=== PATIENT | female | born 1950 | race Caucasian/White ===

== ENCOUNTER 2017-08-10 13:59 | Emergency (ER) | payer MEDICARE, SELFPAY ==
[2017-08-10 14:47] VITALS: BP 144/90; PULSE 77; RESP 16; TEMP 36.6; O2SAT 97
--- NOTE | 2017-08-10 17:32 | ED.SKABFB ---
HPI - Skin/Abscess/Foreign Bdy <Marichuy Tuttle PA-C - Last Filed: 08/10/17 22:41> General Chief complaint: Skin/Abscess/Foreign Body Stated complaint: CUT FINGER,DEEP WOUND Time Seen by Provider: 08/10/17 17:33 Source: patient Mode of arrival: ambulatory Limitations: no limitations History of Present Illness HPI narrative: This 67-year-old female, right handed, was doing dishes when a glass she was holding broke and cut her right pointer finger. She states that this broken to a large piece, denies any possibility of foreign body. This has been bleeding quite a bit, and she reports pain around the wound itself but denies any other pain, weakness or paresthesia in the fingers. She cannot remember the date of her last tetanus vaccine. She denies any other injury or complaint Related Data Allergies Allergy/AdvReac Type Severity Reaction Status Date / Time poison joanne extract Allergy Mild Rash Verified 08/10/17 18:22 Review of Systems <Marichuy Tuttle PA-C - Last Filed: 08/10/17 22:41> Review of Systems All systems reviewed & are unremarkable except as noted in HPI and below Exam <Marichuy Tuttle PA-C - Last Filed: 08/10/17 22:41> Narrative Exam Narrative: GENERAL APPEARANCE: Patient sitting comfortably, in no distress. LUNGS: Clear to auscultation bilaterally. HEART: Rate and rhythm regular without murmur, normal S1 and S2, no S3 or S4. DERM: R. PF there is a curvilinear 0.8 x 1cm avulsion, bleeding freely from the medial side when pressure is released, appears to be 3-4 mm deep. No visible tendon, muscle, or bone. No visible FB. There is some skin ecchymoses in the center. There are microtears in the skin on the medial, proximal edge. MUSCULOSKELETAL: Full range of motion of right hand fingers, strength intact against resistance NEUROVASCULAR: Right hand fingers are warm and pink with brisk cap refill, sensation grossly intact Initial Vital Signs Initial Vital Signs: Vital Signs Temperature 97.9 F 08/10/17 14:47 Pulse Rate 77 08/10/17 14:47 Respiratory Rate 16 08/10/17 14:47 Blood Pressure 144/90 H 08/10/17 14:47 Pulse Oximetry 97 08/10/17 14:47 <DO Elina Chiang Last Filed: 08/11/17 01:02> Initial Vital Signs Initial Vital Signs: Vital Signs Temperature 97.9 F 08/10/17 14:47 Pulse Rate 77 08/10/17 14:47 Respiratory Rate 16 08/10/17 14:47 Blood Pressure 144/90 H 08/10/17 14:47 Pulse Oximetry 97 08/10/17 14:47 Procedures <TAO Reyna Last Filed: 08/10/17 22:41> Laceration Repair Laceration 1: Site: hand (Right pointer finger) Side (If applicable): right Size (cm): 1.8 Description: flap Depth: simple, single layer Local Anesthetic: lidocaine 2% (digital block) Amount of anesthesia used (mL): 4 Pre-repair: wound explored, irrigated extensively and deep structures intact Skin layer closed with: nylon Size (cm): 5-0 Number of sutures: 7 Technique: simple, interrupted Course <TAO Reyna Last Filed: 08/10/17 22:41> Hospital Course: Laceration was closed. One Steri-Strip was placed in the middle of the medial wound border where I was unable to get a suture to hold due to the tears in the skin edges. A straight finger immobilizer was placed along with bulky dressing Orders Ordered: Discontinued Medications Diphtheria/Tetanus/Acell Pertussis (Adacel) 0.5 ml IM .ONCE ONE Stop: 08/10/17 18:20 Last Admin: 08/10/17 18:23 Dose: 0.5 ml Vital Signs - 8 hr 08/10/17 18:52 Pulse Rate 68 Respiratory Rate 14 Blood Pressure 166/98 H Pulse Oximetry 100 <Michele Singh DO - Last Filed: 08/11/17 01:02> Orders Ordered: Discontinued Medications Diphtheria/Tetanus/Acell Pertussis (Adacel) 0.5 ml IM .ONCE ONE Stop: 08/10/17 18:20 Last Admin: 08/10/17 18:23 Dose: 0.5 ml Vital Signs - 8 hr 08/10/17 18:52 Pulse Rate 68 Respiratory Rate 14 Blood Pressure 166/98 H Pulse Oximetry 100 Discharge Plan Departure Patient Disposition: Home, Self-Care Clinical Impression: Laceration of finger of right hand Discharge Date/Time: 08/10/17 18:53 Interventions: ED Discharge Assessment Last Done: 08/10/17 18:52 Instructions: DI for Laceration Repair Activity Restrictions/Additional Instructions: Wear the splint and bandage for protection. Keep clean and dry. Monitor for any signs of infection and return here right away or to your PCP if any. Follow up with your PCP in 1 week for suture check and removal Referrals: Tirso Small MD [Primary Care Provider] - <Michele Singh DO - Last Filed: 08/11/17 01:02> Cosign ED Attending Lex Attestation: I was available for consultation during this patient's emergency department encounter
[2017-08-10] MEDS: TET,DIPH,PERTUSS(ACELL),VAC/PF 0.5 ML SYRINGE IM (18:23)
[2017-08-10 18:52] VITALS: BP 166/98; PULSE 68; RESP 14; O2SAT 100
== END 2017-08-10 18:53 | disposition home or self-care (01) ==
PROVIDERS: Emergency Provider Internal Medicine; PCP Internal Medicine
DX: S61.210A Laceration without foreign body of right index finger without damage to nail, initial encounter (principal); W25.XXXA Contact with sharp glass, initial encounter
CPT/HCPCS: 12001; 29130; 90471; 99282; 90715

== ENCOUNTER → 2017-08-24 08:07 | Outpatient (CLI) | payer MEDICARE, SELFPAY ==
[2017-08-24 09:09] LABS: Add Manual Diff / Slide Review NO; Basophils Percent Auto 0.5 % (0-2); Eosinophils Percent Auto 4.7 % (2-4); Hemoglobin 14.2 g/dL (12.0-16.0); Lymphocytes Percent Auto 18.9 % (25-40); Mean Corpuscular HGB Conc 33.1 % (30-36); Mean Corpuscular Hemoglobin 28.5 PG (26-34); Mean Corpuscular Volume 86.1 fL (80-100); Monocytes Percent Auto 10.5 % (3-14); Neutrophils Absolute Auto 4100 /uL (3000-5900); Neutrophils Percent Auto 65.4 % (50-75); Platelet Count 200 X10^3/uL (150-400); Red Blood Cell Count 4.99 X10^6/uL (4.0-5.2); Red Cell Distribution Width 13.1 % (11.6-14.8); White Blood Cell Count 6.2 X10^3/uL (4.5-11.0)
[2017-08-24 09:39] LABS: Alanine Aminotransferase 24 IU/L (9-52); Albumin 4.1 g/dL (3.5-5.0); Albumin Globulin Ratio 1.2 (1.0-2.8); Alkaline Phosphatase 59 U/L (38-126); Aspartate Aminotransferase 21 IU/L (14-36); Bilirubin Total 0.6 mg/dL (0.2-1.3); Blood Urea Nitrogen 16 mg/dL (7-17); Calcium 9.1 mg/dL (8.4-10.2); Carbon Dioxide 32 mmol/L (22-32); Chloride 103 mmol/L (98-107); Cholesterol 202 mg/dL (140-199); Estimated Glomerular Filt Rate > 60.0 mL/min (>60); Globulin 3.3 g/dL (1.7-4.1); Glucose 103 mg/dL (80-110); HDL Cholesterol 40 mg/dL (40-60); HEMOLYSIS < 15 (0-50); LDL Cholesterol Calculated 151 mg/dL (<100); Potassium 4.2 mmol/L (3.4-5.1); Sodium 144 mmol/L (137-145); Total Protein 7.4 g/dL (6.3-8.2); Triglycerides 55 mg/dL (35-150)
[2017-08-24 10:20] LABS: TSH w/ Reflex to FT4 1.41 uIU/mL (0.47-4.68)
== END ==
PROVIDERS: PCP Internal Medicine; Visit Provider Internal Medicine
DX: E78.5 Hyperlipidemia, unspecified (principal)
CPT/HCPCS: 36415; 80053; 80061; 84443; 85025

== ENCOUNTER → 2020-05-15 16:17 | Outpatient (CLI) | payer MEDICARE, SELFPAY ==
[2020-05-15] MEDS: COVID-19 VACC #1, MRNA(MOD) 100 MCG/0.5 ML VIAL IM (16:28)
== END ==
PROVIDERS: PCP Internal Medicine; Visit Provider Internal Medicine
DX: Z23 Encounter for immunization (principal)
CPT/HCPCS: 0011A; 91301

== ENCOUNTER → 2020-06-12 15:49 | Outpatient (CLI) | payer MEDICARE, SELFPAY ==
[2020-06-12] MEDS: COVID-19 VACC #2, MRNA(MOD) 100 MCG/0.5 ML VIAL IM (16:00)
== END ==
PROVIDERS: PCP Internal Medicine; Visit Provider Internal Medicine
DX: Z23 Encounter for immunization (principal)
CPT/HCPCS: 0012A; 91301

== ENCOUNTER → 2020-09-07 18:57 | Outpatient (CLI) | payer OTHER, SELFPAY | PROVIDERS: PCP Internal Medicine; Visit Provider Physician Assistant | DX: N34.3 Urethral syndrome, unspecified (principal) | CPT/HCPCS: 87077; 87086; 87186 ==

== ENCOUNTER → 2021-01-15 17:30 | Outpatient (CLI) | payer OTHER, SELFPAY ==
[2021-01-15 18:55] LABS: Appearance Urine UA SL CLOUDY; Bilirubin Urine UA NEGATIVE (NEGATIVE); Color Urine UA YELLOW; Glucose Urine UA NEGATIVE (Negative); Ketones Urine UA NEGATIVE (NEGATIVE); Leukocyte Esterase Urine UA TRACE (NEGATIVE); Nitrite Urine UA NEGATIVE (Negative); Occult Blood Urine UA TRACE-LYSED (Negative); Protein Urine UA NEGATIVE (Negative); Urobilinogen Urine UA 0.2 E.U./dL (0.2)
[2021-01-15 19:14] LABS: Bacteria Urine Few (2-10); Culture Indicated Urine Specimen Cultured; RBC Urine 1-5/HPF (0-5/HPF); Squamous Epithelial Cell Urine 1-5 /HPF (0-5/HPF); WBC Urine 5-10/HPF (0-5/HPF); pH Urine UA 5.5 (4.5-8.0)
== END ==
PROVIDERS: PCP Internal Medicine; Referring Provider Internal Medicine; Visit Provider Internal Medicine
DX: N30.01 Acute cystitis with hematuria (principal)
CPT/HCPCS: 81001; 87086

== ENCOUNTER → 2021-03-27 10:14 | Outpatient (CLI) | payer OTHER, SELFPAY ==
[2021-03-27 11:47] LABS: Alanine Aminotransferase 16 IU/L (<35); Albumin 4.1 g/dL (3.5-5.0); Albumin Globulin Ratio 1.3 (1.0-2.8); Alkaline Phosphatase 52 U/L (38-126); Aspartate Aminotransferase 24 IU/L (14-36); BUN Creatinine Ratio 19.8 (6-22); Bilirubin Total 0.4 mg/dL (0.2-1.3); Blood Urea Nitrogen 19 mg/dL (7-17); Calcium 9.4 mg/dL (8.4-10.2); Carbon Dioxide 30 mmol/L (22-32); Chloride 106 mmol/L (98-107); Estimated Glomerular Filt Rate 57.5 mL/min (>60); Globulin 3.1 g/dL (1.7-4.1); Glucose 105 mg/dL (80-110); HEMOLYSIS < 15 (0-50); Potassium 4.5 mmol/L (3.4-5.1); Sodium 140 mmol/L (137-145); Total Protein 7.2 g/dL (6.3-8.2)
== END ==
PROVIDERS: PCP Internal Medicine; Referring Provider Internal Medicine; Visit Provider Internal Medicine
DX: I10 Essential (primary) hypertension (principal)
CPT/HCPCS: 36415; 80053

== ENCOUNTER → 2022-09-07 09:21 | Outpatient (CLI) | payer OTHER, SELFPAY ==
[2022-09-07 11:19] LABS: Alanine Aminotransferase 20 IU/L (<35); Albumin 4.1 g/dL (3.5-5.0); Albumin Globulin Ratio 1.2 (1.0-2.8); Alkaline Phosphatase 62 U/L (38-126); Aspartate Aminotransferase 25 IU/L (14-36); BUN Creatinine Ratio 16.3 (6-22); Bilirubin Total 0.7 mg/dL (0.2-1.3); Blood Urea Nitrogen 14 mg/dL (7-17); Calcium 8.8 mg/dL (8.4-10.2); Carbon Dioxide 30 mmol/L (22-32); Chloride 104 mmol/L (98-107); Cholesterol 210 mg/dL (140-199); Estimated Glomerular Filt Rate > 60 mL/min (>60); Globulin 3.3 g/dL (1.7-4.1); Glucose 103 mg/dL (80-110); HDL Cholesterol 40 mg/dL (40-60); HEMOLYSIS < 15 (0-50); LDL Cholesterol Calculated 147 mg/dL (<100); Sodium 137 mmol/L (137-145); Total Protein 7.4 g/dL (6.3-8.2); Triglycerides 114 mg/dL (35-150)
== END ==
PROVIDERS: PCP Internal Medicine; Referring Provider Internal Medicine; Visit Provider Internal Medicine
DX: E78.5 Hyperlipidemia, unspecified (principal); I10 Essential (primary) hypertension
CPT/HCPCS: 36415; 80053; 80061